=== PATIENT | female | born 1950 | race Caucasian/White ===

== ENCOUNTER 2019-06-03 19:41 | Emergency (ER) | payer BC ==
--- NOTE | 2019-06-03 20:50 | ED Physician Documentation ---
History of Present Illness - Stated complaint Stated Complaint: LEG SWELLING - Chief complaint Chief Complaint: General - History obtained from History obtained from: Patient - History of Present Illness Timing: How many days ago (10) - Additonal information Additional information: Is a 68-year-old woman who presents after being seen in urgent care today and re ceiving a phone call that she had abnormal lab test and the elevated d-dimer and they wanted her to come in for an ultrasound. She tells me she went to urgent care in the first place for "a Croatian" scab things and swelling in her legs that have been progressing over the past 10 days. She thinks she might have some sort of parasite that she contracted after her neighbor cleared [address] right next to their house and there just been a ton a deer around since then. She does have pain in her feet just from all the swelling and the skin stretching. Both legs are swollen symmetrically and she does not feel short of breath. Note denies chest pain. She has not felt dizzy or had nausea or vomiting. She denies any history of heart disease and denies history of DVT. She reports a fever of 101 degrees last week resolved on its own and she says that she is prone to sinus infections she has had minimal nasal congestion but denies sore throat coughing or ear pain. She does take a baby aspirin daily and even though she supposed to be on thyroid replacement she is been off of it for a couple of years. She has noticed that her pants are tighter and she is estimates she is gained 20 to 30 pounds over the past 10 days. 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 She is . Review of Systems Constitutional: denies: Fever Ears: denies: Ear pain Nose: reports: Congestion Throat: denies: Sore throat Cardiac: reports: Pedal edema. denies: Chest pain / pressure, Palpitations Respiratory: denies: Dyspnea, Cough GI: denies: Nausea, Vomiting : denies: Dysuria Skin: reports: Rash (There are several open small pinpoint lesions on her lower extremities.) Musculoskeletal: reports: Extremity swelling Neurologic: denies: Generalized weakness, Numbness, Syncope Endocrine: reports: Other (Patient has a history of hypothyroidism but is not on her Synthroid currently) PD PAST MEDICAL HISTORY - Allergies Allergies/Adverse Reactions: Allergies Allergy/AdvReac Type Severity Reaction Status Date / Time bee venom protein (honey bee) Allergy Anaphylaxis Verified 06/03/19 19:48 Penicillins Allergy Anaphylaxis Verified 06/03/19 19:48 - Social History Does the pt smoke?: No Smoking Status: Never smoker PD ED PE NORMAL - Vitals Vital signs reviewed: Yes - General General: Alert and oriented X 3, No acute distress, Well developed/nourished - HEENT HEENT: Atraumatic, PERRL, Moist mucous membranes, Other (No scleral icterus) - Neck Neck: No adenopathy - Cardiac Cardiac: RRR, No murmur, Strong equal pulses - Respiratory Respiratory: No respiratory distress, Clear bilaterally - Abdomen Abdomen: Normal bowel sounds, Soft, No organomegaly - Derm Derm: Other (Small scattered scabs on her lower extremities bilaterally) - Extremities Extremities: Other (There is 3-4+ pitting edema to her knees bilaterally and pitting edema up the posterior aspect of her thighs to her hips.) - Neuro Neuro: Alert and oriented X 3, No motor deficit, No sensory deficit, Normal speech - Psych Psych: Normal mood, Normal affect Results - Vitals Vitals: Oxygen O2 Source Room air - EKG (time done) 2122 Rate: Rate (enter#) (89) Rhythm: NSR Intervals: Other (Narrow QRS) Ischemia: ST depression (V6), Q waves (V1 and V2), T wave inversion (III), Non specific changes - Labs Labs: Laboratory Tests 06/03/19 06/03/19 06/03/19 21:15 21:15 21:15 WBC 4.4 L RBC 3.92 L Hgb 11.9 L Hct 38.0 MCV 96.9 MCH 30.4 MCHC 31.3 L RDW 14.2 Plt Count 94 L MPV 10.1 Neut # (Auto) 2.5 Lymph # (Auto) 1.1 L [place] # (Auto) 0.5 Eos # (Auto) 0.1 Baso # (Auto) 0.0 Absolute Nucleated RBC 0.00 Nucleated RBC % 0.0 D-Dimer Sodium 140 Potassium 4.0 Chloride 106 Carbon Dioxide 26 Anion Gap 8.0 BUN 11 Creatinine 0.8 Estimated GFR (MDRD) 71 L Glucose 90 Calcium 8.5 Total Bilirubin 2.0 H AST 138 H ALT 96 H Alkaline Phosphatase 125 H Troponin I High Sens B-Natriuretic Peptide 164 H Total Protein 7.4 Albumin 3.3 Globulin 4.1 Albumin/Globulin Ratio 0.8 L Lipase 36 TSH Urine Color Urine Clarity Urine pH Ur Specific [place] Urine Protein Urine Glucose (UA) Urine Ketones Urine Occult Blood Urine Nitrite Urine Bilirubin Urine Urobilinogen Ur Leukocyte Esterase Ur Microscopic Review Urine Culture Comments 06/03/19 06/03/19 06/03/19 21:15 21:15 21:37 WBC RBC Hgb Hct MCV MCH MCHC RDW Plt Count MPV Neut # (Auto) Lymph # (Auto) [place] # (Auto) Eos # (Auto) Baso # (Auto) Absolute Nucleated RBC Nucleated RBC % D-Dimer Sodium Potassium Chloride Carbon Dioxide Anion Gap BUN Creatinine Estimated GFR (MDRD) Glucose Calcium Total Bilirubin AST ALT Alkaline Phosphatase Troponin I High Sens 5.9 B-Natriuretic Peptide Total Protein Albumin Globulin Albumin/Globulin Ratio Lipase TSH 4.06 Urine Color YELLOW Urine Clarity CLEAR Urine pH 6.0 Ur Specific [place] <=1.005 Urine Protein NEGATIVE Urine Glucose (UA) NEGATIVE Urine Ketones NEGATIVE Urine Occult Blood NEGATIVE Urine Nitrite NEGATIVE Urine Bilirubin NEGATIVE Urine Urobilinogen 1 (NORMAL) Ur Leukocyte Esterase NEGATIVE Ur Microscopic Review NOT INDICATED Urine Culture Comments NOT INDICATED 06/03/19 21:52 WBC RBC Hgb Hct MCV MCH MCHC RDW Plt Count MPV Neut # (Auto) Lymph # (Auto) [place] # (Auto) Eos # (Auto) Baso # (Auto) Absolute Nucleated RBC Nucleated RBC % D-Dimer > 1050.0 H Sodium Potassium Chloride Carbon Dioxide Anion Gap BUN Creatinine Estimated GFR (MDRD) Glucose Calcium Total Bilirubin AST ALT Alkaline Phosphatase Troponin I High Sens B-Natriuretic Peptide Total Protein Albumin Globulin Albumin/Globulin Ratio Lipase TSH Urine Color Urine Clarity Urine pH Ur Specific [place] Urine Protein Urine Glucose (UA) Urine Ketones Urine Occult Blood Urine Nitrite Urine Bilirubin Urine Urobilinogen Ur Leukocyte Esterase Ur Microscopic Review Urine Culture Comments - Rads (name of study) cxr Radiology: EMP read contemporaneously, See rad report (No pulm edema or cardiomegaly) PD MEDICAL DECISION MAKING - ED course Complexity details: reviewed results, d/w patient, d/w family ED course: Patient's initial presentation seemed more of a picture of CHF. Her TSH is actually in the normal range. Her BNP is only slightly elevated at 164. D- dimer did come back over 1050 and I have ordered ultrasound of her lower extremities bilaterally. Troponin was normal. Her liver enzymes are elevated and her white blood cell count and platelet counts are slightly low. She was given Lasix 40 mg and has urinated out 900 cc. I discussed with the hospitalist because I felt the patient should be admitted and worked up with echo. He is requested a CT scan of the chest, abdomen and pelvis with IV contrast. This will tell us if there is any pulmonary embolus or pericardial effusion or other concerning obstructive process in the abdomen. 2349: Care turned over to Dr Posada to F/U on CTs and duplex U/S. Departure - Departure Disposition: 01 Home, Self Care Clinical Impression: Peripheral edema, Cirrhosis Condition: Good Instructions: ED Cirrhosis Liver, ED Edema Legs Bilateral Discharge Date/Time: 06/04/19 02:33
[2019-06-03 21:25] LABS: BASOPHILS % (AUTO) 0.9 %; EOSINOPHILS # (AUTO) 0.1 10^3/uL (0.0-0.7); EOSINOPHILS % (AUTO) 2.5 %; HGB - HEMOGLOBIN 11.9 g/dL (12.0-16.0); LYMPHOCYTES # (AUTO) 1.1 10^3/uL (1.5-3.5); LYMPHOCYTES % (AUTO) 26.1 %; MEAN CORPUSCULAR HEMOGLOBIN 30.4 pg (27.0-31.0); MEAN CORPUSCULAR HGB CONC 31.3 g/dL (32.0-36.0); MEAN CORPUSCULAR VOLUME 96.9 fL (81.0-99.0); MEAN PLATELET VOLUME 10.1 fL (7.9-10.8); MONOCYTES # (AUTO) 0.5 10^3/uL (0.0-1.0); MONOCYTES % (AUTO) 11.9 %; NEUTROPHILS # (AUTO) 2.5 10^3/uL (1.5-6.6); NEUTROPHILS % (AUTO) 57.9 %; PLT - PLATELET COUNT 94 10^3/uL (130-450); RED BLOOD COUNT 3.92 10^6/uL (4.20-5.40); RED CELL DISTRIBUTION WIDTH 14.2 % (12.0-15.0); WHITE BLOOD COUNT 4.4 x10^3/uL (4.8-10.8)
[2019-06-03 21:32] LABS: ALBUMIN 3.3 g/dL (3.2-5.5); ALBUMIN/GLOBULIN RATIO 0.8 (1.0-2.2); CALCIUM 8.5 mg/dL (8.5-10.3); CREATININE 0.8 mg/dL (0.4-1.0); TOTAL PROTEIN 7.4 g/dL (6.7-8.2)
[2019-06-03 21:43] LABS: BILIRUBIN,URINE NEGATIVE (NEGATIVE); GLUCOSE, URINE (UA) NEGATIVE (NEGATIVE); KETONES,URINE (UA) NEGATIVE (NEGATIVE); LEUKOCYTE ESTERASE, URINE NEGATIVE (NEGATIVE); NITRITE,URINE NEGATIVE (NEGATIVE); OCCULT BLOOD,URINE NEGATIVE (NEGATIVE); PROTEIN,URINE NEGATIVE (NEGATIVE); UROBILINOGEN,URINE 1 (NORMAL) E.U./dL (NORMAL)
[2019-06-03 21:45] LABS: CLARITY,URINE CLEAR (CLEAR)
[2019-06-03] MEDS ORDERED: FUROSEMIDE 40 MG/4 ML VIAL IVP STA (21:50)
--- NOTE | 2019-06-03 22:02 | XRAY Report ---
Reason: chest pain Procedure Date: 06/03/2019 Accession Number: [id number] / [id number] Procedure: XR - Chest 1 View X-Ray CPT Code: 97849 FULL RESULT: EXAM: CHEST RADIOGRAPHY EXAM DATE: 06/03/2019 09:38 PM. CLINICAL HISTORY: Chest pain. COMPARISON: 01/31/2014 3:20 PM. TECHNIQUE: 1 view. FINDINGS: Lungs/Pleura: No dense consolidation. No large effusion or pneumothorax. No pulmonary edema. Mediastinum: Heart and mediastinal contours are unremarkable. Other: None. IMPRESSION: No acute radiographic pulmonary abnormalities. RADIA
[2019-06-04] MEDS ORDERED: IOVERSOL 320 100 ML VIAL IVP ONE ×2 (00:07→01:14)
[2019-06-04] MEDS ORDERED: diphenhydrAMINE INJ 50 MG/ML VIAL IVP STA (00:33)
[2019-06-04 00:42] VITALS: BP 160/80
--- NOTE | 2019-06-04 00:52 | Ultrasound Report ---
Reason: bilat edema Procedure Date: 06/04/2019 Accession Number: [id number] / [id number] Procedure: US - Duplex Ext Veins Bilateral CPT Code: FULL RESULT: EXAM: BILATERAL LOWER EXTREMITY VENOUS ULTRASOUND EXAM DATE: 06/04/2019 12:15 AM. CLINICAL HISTORY: Bilateral leg edema. Elevated d-dimer. COMPARISON: None. TECHNIQUE: Real-time sonographic vascular imaging was performed by the tailman through the lower extremities utilizing both color-flow and Doppler spectral analysis. Multiple pharmaceutical specialty representative static images were saved for review. FINDINGS: Right: Common Femoral Vein (CFV): Normal. CFV-GSV Junction: Normal. Profunda Femoral Vein (PFV): Normal. Femoral Vein (FV) Prox: Normal. Femoral Vein (FV) Mid: Normal. Femoral Vein (FV) Dist: Normal. Popliteal Vein: Normal. Posterior Tibial Veins: Normal. Peroneal Veins: Normal. Left: Common Femoral Vein (CFV): Normal. CFV-GSV Junction: Normal. Profunda Femoral Vein (PFV): Normal. Femoral Vein (FV) Prox: Normal. Femoral Vein (FV) Mid: Normal. Femoral Vein (FV) Dist: Normal. Popliteal Vein: Normal. Posterior Tibial Veins: Normal. Peroneal Veins: Normal. Other: Edema in legs, difficult to visualize anatomy especially in calves due to the edema. IMPRESSION: No evidence for deep venous thrombosis bilaterally. Limited as above. RADIA
--- NOTE | 2019-06-04 01:25 | CT Report ---
Reason: Elevated d-dimer Procedure Date: 06/04/2019 Accession Number: [id number] / [id number] Procedure: CT - ANGIO CHEST W/WO CPT Code: FULL RESULT: EXAM: CT ANGIOGRAM CHEST EXAM DATE: 06/04/2019 01:12 AM. CLINICAL HISTORY: Elevated d-dimer. COMPARISON: ABDOMEN/PELVIS W/ 06/04/2019 12:51 AM. TECHNIQUE: Routine helical imaging was performed through the chest in the pulmonary arterial phase. IV Contrast: OPTI 320 100ML. Reconstructions: Coronal 3-D MIP reconstructions.Sagittal and coronal. In accordance with CT protocol optimization, one or more of the following dose reduction techniques were utilized for this exam: automated exposure control, adjustment of mA and/or KV based on patient size, or use of iterative reconstructive technique. FINDINGS: Pulmonary Arteries: Diagnostic quality: Adequate through the segmental arteries. No evidence for acute or chronic pulmonary emboli. RV/LV is within normal limits. There is no interventricular septal bowing. There is no reflux of contrast material in the IVC. Lungs/Pleura: There are no infiltrates. There is a small sessile nodule at the right lung base noted on series 3 image 246. This measures 8 mm x 5 mm. There are no pleural effusions. Mediastinum: The heart is slightly prominent and there are atherosclerotic vascular calcifications of the coronary arteries. Thoracic Aorta: Unremarkable. Upper Abdomen: Limited views to the upper abdomen demonstrate nodular surface of the liver compatible with underlying cirrhosis. Is also a very small amount of perihepatic ascites. Cholelithiasis. Other: None. IMPRESSION: 1. No evidence for pulmonary emboli. 2. Very small pleural-based, sessile nodule at the right lung base. 3. Hepatic cirrhosis and small amount of perihepatic ascites. 4. Cholelithiasis. RADIA
--- NOTE | 2019-06-04 01:32 | CT Report ---
Reason: elevated liver enzymes and leg edema Procedure Date: 06/04/2019 Accession Number: [id number] / [id number] Procedure: CT - Abdomen/Pelvis W CPT Code: FULL RESULT: EXAM: CT ABDOMEN AND PELVIS EXAM DATE: 06/04/2019 01:10 AM. CLINICAL HISTORY: Elevated liver enzymes and leg edema. COMPARISONS: None. TECHNIQUE: Routine helical CT imaging was performed through the abdomen and pelvis. IV contrast: OPTI 320 100ML. Enteric contrast: No. Reconstructions: Coronal and sagittal. In accordance with CT protocol optimization, one or more of the following dose reduction techniques were utilized for this exam: automated exposure control, adjustment of mA and/or KV based on patient size, or use of iterative reconstructive technique. FINDINGS: Lung Bases: Please see recent CT scan of the chest. There is a small sessile nodule at the right lung base. Liver: The liver is contracted and the surface nodular compatible with underlying panic cirrhosis. There is a small amount of perihepatic ascites. Gallbladder/Bile Ducts: There is cholelithiasis without evidence for cholecystitis. Spleen: Normal. Pancreas: Normal. Adrenal Glands: Normal. Kidneys: Normal. No masses or hydronephrosis. Peritoneal Cavity/Bowel: Normal. No free fluid, free air or adenopathy. No masses or acute inflammatory process. The cecum is low lying in the pelvis and there is a moderate amount of stool in the cecum and the ascending colon. The appendix is not clearly visualized. The remaining colon is unremarkable. There is a moderate amount of stool within. No definite inflammatory changes. Pelvic Organs: There is pelvic ascites. Uterus is atrophic. There are no adnexal masses. The bladder is unremarkable. Vasculature: Atherosclerotic vascular calcifications of the aortoiliac vessels. Bones: There are degenerative changes of the spine and moderate to early severe central canal stenosis at the L4-L5 level. Other: None. IMPRESSION: 1. Hepatic cirrhosis. 2. Abdominal and pelvic ascites. 3. Cholelithiasis without evidence for cholecystitis. 4. Spinal stenosis at the L4-L5 level. RADIA
--- NOTE | 2019-06-04 08:15 | ED Physician Documentation ---
ED Addendum - Addendum Addendum: 06/04/19 08:07 Received s/o from Dr. Nicolas; plan is to reevaluate patient after tests resulted (specifically, US and CT chest/abd/pelvis). No DVT on BLE US and no PE on CT chest. Notably, there are hepatic findings c/w cirrhosis with small perihepatic and pelvic ascites. Incidental note of cholelithiasis. No evidence of pericardial effusion. I discussed these results with patient. She says she drinks a 2-3 glasses of wine per night. She has not been diagnosed with liver problems in the past. She is comfortable with d/c home and understands that she needs to follow up for further testing. I stressed the importance of stopping any and all alcohol consumption immediately.
== END 2019-06-04 02:33 | disposition home or self-care (01) ==
LOC: ED 19:41
DX: R60.0 Localized edema (principal); K74.60 Unspecified cirrhosis of liver; R18.8 Other ascites; K80.20 Calculus of gallbladder without cholecystitis without obstruction; M48.061 Spinal stenosis, lumbar region without neurogenic claudication; Z79.82 Long term (current) use of aspirin
CPT/HCPCS: 36415; 71045; 71275; 74177; 81003; 83690; 83880; 84484; 85379; 93005; 93970; 96374; 96375; 99283; 99284; J1200; Q9967; 80053; 81001; 84443; 85025; 87086

== ENCOUNTER 2020-10-20 07:00 | Outpatient (CLI) | payer BC ==
[2020-10-20 18:16] LABS: BILIRUBIN,URINE NEGATIVE (NEGATIVE); GLUCOSE, URINE (UA) NEGATIVE (NEGATIVE); KETONES,URINE (UA) NEGATIVE (NEGATIVE); LEUKOCYTE ESTERASE, URINE NEGATIVE (NEGATIVE); NITRITE,URINE NEGATIVE (NEGATIVE); OCCULT BLOOD,URINE NEGATIVE (NEGATIVE); PH,URINE 5.5 PH (5.0-7.5); PROTEIN,URINE NEGATIVE (NEGATIVE); UROBILINOGEN,URINE 1 (NORMAL) E.U./dL (NORMAL)
[2020-10-20 18:23] LABS: CLARITY,URINE HAZY (CLEAR)
[2020-10-20 18:37] LABS: BACTERIA,URINE Few /HPF (None Seen); RBC,URINE None Seen /HPF (0-5); SQUAMOUS EPITHELIAL CELL,UR MANY Squamous (<= Few); WBC,URINE 0-3 /HPF (0-5)
== END 2020-10-20 23:59 | disposition home or self-care (01) ==
LOC: LAB.R 07:00
PROVIDERS: ATTEND Obstetrics & Gynecology
DX: R30.0 Dysuria (principal)
CPT/HCPCS: 81001; 87086

== ENCOUNTER 2020-10-20 07:00 | Outpatient (CLI) | payer BC ==
[2020-10-21 20:10] LABS: BACTERIAL VAGINOSIS DNA NEGATIVE (NEGATIVE); CANDIDA GLABRATA DNA NEGATIVE (NEGATIVE); CANDIDA GROUP DNA NEGATIVE (NEGATIVE); CANDIDA KRUSEI DNA NEGATIVE (NEGATIVE); TRICHOMONAS VAGINALIS DNA NEGATIVE (NEGATIVE)
== END 2020-10-20 23:59 | disposition home or self-care (01) ==
LOC: LAB.R 07:00
PROVIDERS: ATTEND Obstetrics & Gynecology
DX: N89.8 Other specified noninflammatory disorders of vagina (principal)
CPT/HCPCS: 87661; 87801

== ENCOUNTER 2020-10-20 11:27 | Outpatient (CLI) | payer BC ==
[2020-10-20 12:08] LABS: HCT - HEMATOCRIT 31.3 % (37.0-47.0); HGB - HEMOGLOBIN 10.3 g/dL (12.0-16.0); MEAN CORPUSCULAR HEMOGLOBIN 32.9 pg (27.0-31.0); MEAN CORPUSCULAR HGB CONC 32.9 g/dL (32.0-36.0); MEAN PLATELET VOLUME 9.9 fL (7.9-10.8); RED BLOOD COUNT 3.13 10^6/uL (4.20-5.40); RED CELL DISTRIBUTION WIDTH 15.7 % (12.0-15.0); WHITE BLOOD COUNT 4.5 x10^3/uL (4.8-10.8)
[2020-10-20 12:24] LABS: INR 1.5 (0.8-1.2); PT - PROTHROMBIN TIME 16.9 secs (9.9-12.6)
[2020-10-20 12:25] LABS: ALBUMIN 2.8 g/dL (3.2-5.5); ALBUMIN/GLOBULIN RATIO 0.7 (1.0-2.2); BILIRUBIN,TOTAL 2.3 mg/dL (0.2-1.0); CALCIUM 8.3 mg/dL (8.5-10.3); POTASSIUM 4.1 mmol/L (3.5-5.0); TOTAL PROTEIN 7.1 g/dL (6.7-8.2)
[2020-10-20 16:08] LABS: % IRON SATURATION 80 % (20-50); IRON 184 ug/dL (28-170); TOTAL IRON BINDING CAPACITY 231 ug/dL (250-450); TRANSFERRIN 165 mg/dL (192-382)
[2020-10-20 16:17] LABS: THYROID STIMULATING HORMONE 4.68 uIU/mL (0.34-5.60)
[2020-10-20 16:24] LABS: FERRITIN 165.9 ng/mL (11.0-306.8)
== END 2020-10-20 11:28 | disposition home or self-care (01) ==
LOC: LAB 11:27
PROVIDERS: ATTEND Obstetrics & Gynecology
DX: R60.0 Localized edema (principal); R23.3 Spontaneous ecchymoses; D53.9 Nutritional anemia, unspecified; B19.20 Unspecified viral hepatitis C without hepatic coma; R60.1 Generalized edema; N89.8 Other specified noninflammatory disorders of vagina; R30.0 Dysuria
CPT/HCPCS: 36415; 80053; 81001; 81599; 82140; 82607; 82728; 82746; 83540; 83880; 84443; 84466; 85027; 85610; 87661; 87801

== ENCOUNTER 2020-11-07 13:47 | Outpatient (CLI) | payer BC ==
--- NOTE | 2020-11-07 16:46 | Ultrasound Report ---
PROCEDURE: Abdomen Complete INDICATIONS: HEP C, LOWER EXTREMITY EDEMA BILAT, ANASARCA TECHNIQUE: Real-time scanning was performed of the abdominal and retroperitoneal organs, with image documentatio n. COMPARISON: None. FINDINGS: Liver: The liver is coarse and nodular consistent with cirrhosis. The liver measures 12.2 cm in great est dimension there is perihepatic ascites. No hepatic masses are identified. Gallbladder: Cholelithiasis without evidence of cholecystitis. Gallbladder wall is slightly thickened measuring 3.8 mm. Biliary ducts: Intrahepatic bile ducts are non-dilated. Extrahepatic bile duct caliber measures 6 m m. Normal is 6-7 mm or less in diameter, or 10 mm or less post-cholecystectomy. Pancreas: Visualized portions of the pancreas are sonographically normal. Spleen: Spleen is normal in size and homogeneous in echotexture. Kidneys: Kidneys are normal in size and echotexture. Right kidney measures 10.8 cm long; left kidne y measures 10.8 cm long. No hydronephrosis or nephrolithiasis. No solid masses. Aorta: Visualized aorta is normal in caliber at less than 3 cm. Iliacs: Proximal common iliac arteries are normal in caliber at less than 2.5 cm. IVC: Intrahepatic inferior vena cava is patent. IMPRESSION: 1. Cirrhosis with ascites. 2. Cholelithiasis. 3. No hepatic masses identified. Reviewed by: Jhon Rodriguez on 11/07/2020 4:44 PM PDT Approved by: hJon Rodriguez on 11/07/2020 4:44 PM PDT Station ID: [id number]
== END 2020-11-07 13:48 | disposition home or self-care (01) ==
LOC: DI 13:47
PROVIDERS: ATTEND Obstetrics & Gynecology
DX: B19.20 Unspecified viral hepatitis C without hepatic coma (principal); K74.60 Unspecified cirrhosis of liver; R18.8 Other ascites; K80.20 Calculus of gallbladder without cholecystitis without obstruction; D53.9 Nutritional anemia, unspecified; D61.818 Other pancytopenia
CPT/HCPCS: 36415; 85025; 85045

== ENCOUNTER 2020-11-07 15:23 | Outpatient (CLI) | payer BC ==
[2020-11-07 16:00] LABS: ABSOLUTE RETICS # AUTO 0.064 10^6/uL (0.020-0.110); BASOPHILS % (AUTO) 1.1 %; EOSINOPHILS % (AUTO) 3.5 %; HCT - HEMATOCRIT 32.7 % (37.0-47.0); HGB - HEMOGLOBIN 10.7 g/dL (12.0-16.0); LYMPHOCYTES % (AUTO) 38.5 %; MEAN CORPUSCULAR HEMOGLOBIN 33.1 pg (27.0-31.0); MEAN CORPUSCULAR HGB CONC 32.7 g/dL (32.0-36.0); MEAN CORPUSCULAR VOLUME 101.2 fL (81.0-99.0); MEAN PLATELET VOLUME 10.8 fL (7.9-10.8); MONOCYTES % (AUTO) 15.1 %; NEUTROPHILS % (AUTO) 41.6 %; PLT - PLATELET COUNT 94 10^3/uL (130-450); RED BLOOD COUNT 3.23 10^6/uL (4.20-5.40); RED CELL DISTRIBUTION WIDTH 14.8 % (12.0-15.0); RETICULOCYTE COUNT % (AUTO) 1.98 % (0.5-2.3); WHITE BLOOD COUNT 5.5 x10^3/uL (4.8-10.8)
[2020-11-07 16:04] LABS: ABNORMAL LYMPHS % (MANUAL) 0 %; BAND NEUTROPHILS % (MANUAL) 0 %
[2020-11-07 16:19] LABS: BASOPHILS # (MANUAL) 0.1 10^3/uL (0-0.1); BASOPHILS % (MANUAL) 1 %; DIFFERENTIAL COMMENT MANUAL DIFFERENTIAL; EOSINOPHILS # (MANUAL) 0.2 10^3/uL (0-0.7); LYMPHOCYTES # (MANUAL) 2.8 10^3/uL (1.5-3.5); LYMPHOCYTES % (MANUAL) 51 %; MONOCYTES # (MANUAL) 0.2 10^3/uL (0.0-1.0); NEUTROPHILS # (MANUAL) 2.3 10^3/uL (1.5-6.6); PLATELET ESTIMATE, MANUAL DECREASED (<130,000) (NORMAL); PLATELET MORPHOLOGY NORMAL APPEARANCE (NORMAL); RBC MORPHOLOGY (MULTIPLE) NORMAL APPEARANCE (NORMAL); WBC MORPHOLOGY (MULTIPLE) NORMAL APPEARANCE (NORMAL)
== END 2020-11-07 15:24 | disposition home or self-care (01) ==
LOC: LAB 15:23
PROVIDERS: ATTEND Obstetrics & Gynecology
DX: D53.9 Nutritional anemia, unspecified (principal); D61.818 Other pancytopenia; R60.1 Generalized edema
CPT/HCPCS: 36415; 85025; 85045

== ENCOUNTER 2021-05-09 07:18 | Outpatient (CLI) | payer BC | END 2021-05-09 07:19 | disposition critical access hospital (66) | LOC: ED 07:18 | DX: R10.9 Unspecified abdominal pain (principal); R41.82 Altered mental status, unspecified; R11.2 Nausea with vomiting, unspecified; R19.7 Diarrhea, unspecified; R60.0 Localized edema | CPT/HCPCS: A0425; A0427 ==

== ENCOUNTER 2021-05-09 08:15 | Emergency (ER) | payer BC ==
--- NOTE | 2021-05-09 08:21 | ED Physician Documentation ---
PD HPI ALTERED MENTAL STATUS - Stated complaint Stated Complaint: AMS - History obtained from History obtained from: EMS - Additional information Additional information: 70-year-old woman, history of cirrhosis, presumed alcoholic cirrhosis based on prior records from May 2019, presents with altered mental status. All of the history is from EMS initially because the patient is nonverbal. Reportedly has been walking aimlessly with decreased mental status for the last 2 days with increased edema. Unclear when her last alcohol use was. Review of Systems Unable to obtain: Confused PD PAST MEDICAL HISTORY - Allergies Allergies/Adverse Reactions: Allergies Allergy/AdvReac Type Severity Reaction Status Date / Time bee venom protein (honey bee) Allergy Anaphylaxis Verified 05/09/21 08:33 Penicillins Allergy Anaphylaxis Verified 05/09/21 08:33 - Social History Does the pt smoke?: No Smoking Status: Never smoker PD ED PE NORMAL - Vitals Vital signs reviewed: Yes - General General: Other (She makes eye contact but does not follow commands. She has purposeful movement pulling down her mask whenever she gets the chance. She does not seem overly icteric.) - HEENT HEENT: PERRL - Neck Neck: Supple, no meningeal sign, No bony TTP - Cardiac Cardiac: RRR, No murmur - Respiratory Respiratory: No respiratory distress, Clear bilaterally - Abdomen Abdomen: Non tender, Other (Soft but with positive fluid wave and ascites,) - Back Back: No CVA TTP, No spinal TTP - Derm Derm: Normal color, Warm and dry - Extremities Extremities: Other (4+ lower extremity pitting pedal edema) - Neuro Eye Opening: Spontaneous Motor: Localizes to Pain Verbal: Incomprehensible (She will say ow to painful stimulus but otherwise is nonverbal) GCS Score: 11 Results - Vitals Vitals: Vital Signs - 24 hr 05/09/21 05/09/21 05/09/21 08:20 11:00 13:00 Temperature 36.7 C Heart Rate 108 H 101 H 111 H Respiratory 24 16 18 Rate Blood Pressure 143/87 H 149/74 H 139/89 H O2 Saturation 100 99 98 Oxygen O2 Source Room air - Labs Labs: Laboratory Tests 05/09/21 05/09/21 05/09/21 09:12 09:17 09:17 WBC 13.2 H RBC 3.10 L Hgb 9.5 L Hct 30.1 L MCV 97.1 MCH 30.6 MCHC 31.6 L RDW 16.0 H Plt Count 109 L MPV 10.0 Neut # (Auto) 10.8 H Lymph # (Auto) 1.2 L Jefferson # (Auto) 1.1 H Eos # (Auto) 0.0 Baso # (Auto) 0.0 Absolute Nucleated RBC 0.00 Nucleated RBC % 0.0 PT 16.3 H INR 1.5 H Sodium Potassium Chloride Carbon Dioxide Anion Gap BUN Creatinine Estimated GFR (MDRD) Glucose Calcium Total Bilirubin AST ALT Alkaline Phosphatase Ammonia Total Protein Albumin Globulin Albumin/Globulin Ratio Lipase Urine Color Urine Clarity Urine pH Ur Specific [place] Urine Protein Urine Glucose (UA) Urine Ketones Urine Occult Blood Urine Nitrite Urine Bilirubin Urine Urobilinogen Ur Leukocyte Esterase Ur Microscopic Review Urine Culture Comments Ur Random Chloride Urine Creatinine Ur Total Protein Timed Protein/Creatinin Ratio Urine Sodium Urine Potassium Fluid Source Fluid Color Fluid Clarity Fluid WBC Fluid RBC Fluid Neutrophils % Fluid Lymphocytes % Fluid Monocytes % Fluid Macrophages % Fld Mesothelial Cell % Nasal Adenovirus (PCR) NOT DETECTED Nasal B. parapertussis DNA (PCR) NOT DETECTED Nasal Coronavir 229E PCR NOT DETECTED Nasal Coronavir HKU1 PCR NOT DETECTED Nasal Coronavir NL63 PCR NOT DETECTED Nasal Coronavir OC43 PCR NOT DETECTED Nasal Enterovir/Rhinovir PCR NOT DETECTED Nasal Influenza B PCR NOT DETECTED Nasal Influenza A PCR NOT DETECTED Nasal Parainfluen 1 PCR NOT DETECTED Nasal Parainfluen 2 PCR NOT DETECTED Nasal Parainfluen 3 PCR NOT DETECTED Nasal Parainfluen 4 PCR NOT DETECTED Nasal RSV (PCR) NOT DETECTED Nasal B.pertussis DNA PCR NOT DETECTED Nasal C.pneumoniae (PCR) NOT DETECTED Bg Human Metapneumo PCR NOT DETECTED Nasal M.pneumoniae (PCR) NOT DETECTED Nasal SARS-CoV-2 (PCR) NOT DETECTED Ethyl Alcohol 05/09/21 05/09/21 05/09/21 09:17 09:17 09:45 WBC RBC Hgb Hct MCV MCH MCHC RDW Plt Count MPV Neut # (Auto) Lymph # (Auto) Jefferson # (Auto) Eos # (Auto) Baso # (Auto) Absolute Nucleated RBC Nucleated RBC % PT INR Sodium 137 Potassium 5.8 H Chloride 100 L Carbon Dioxide 18 L Anion Gap 19.0 H BUN 93 H* Creatinine 11.4 H* Estimated GFR (MDRD) 3 L Glucose 86 Calcium 9.2 Total Bilirubin 2.1 H AST 37 ALT 18 Alkaline Phosphatase 43 Ammonia 102.0 H* Total Protein 7.3 Albumin 2.7 L Globulin 4.6 H Albumin/Globulin Ratio 0.6 L Lipase 43 Urine Color Urine Clarity Urine pH Ur Specific [place] Urine Protein Urine Glucose (UA) Urine Ketones Urine Occult Blood Urine Nitrite Urine Bilirubin Urine Urobilinogen Ur Leukocyte Esterase Ur Microscopic Review Urine Culture Comments Ur Random Chloride Urine Creatinine Ur Total Protein Timed Protein/Creatinin Ratio Urine Sodium Urine Potassium Fluid Source PERITONEAL Fluid Color YELLOW Fluid Clarity CLEAR Fluid WBC 46 Fluid RBC < 3000 Fluid Neutrophils % 6 Fluid Lymphocytes % 8 Fluid Monocytes % 24 Fluid Macrophages % 62 Fld Mesothelial Cell % Not Reportable Nasal Adenovirus (PCR) Nasal B. parapertussis DNA (PCR) Nasal Coronavir 229E PCR Nasal Coronavir HKU1 PCR Nasal Coronavir NL63 PCR Nasal Coronavir OC43 PCR Nasal Enterovir/Rhinovir PCR Nasal Influenza B PCR Nasal Influenza A PCR Nasal Parainfluen 1 PCR Nasal Parainfluen 2 PCR Nasal Parainfluen 3 PCR Nasal Parainfluen 4 PCR Nasal RSV (PCR) Nasal B.pertussis DNA PCR Nasal C.pneumoniae (PCR) Bg Human Metapneumo PCR Nasal M.pneumoniae (PCR) Nasal SARS-CoV-2 (PCR) Ethyl Alcohol < 5.0 05/09/21 05/09/21 12:19 12:19 WBC RBC Hgb Hct MCV MCH MCHC RDW Plt Count MPV Neut # (Auto) Lymph # (Auto) Jefferson # (Auto) Eos # (Auto) Baso # (Auto) Absolute Nucleated RBC Nucleated RBC % PT INR Sodium Potassium Chloride Carbon Dioxide Anion Gap BUN Creatinine Estimated GFR (MDRD) Glucose Calcium Total Bilirubin AST ALT Alkaline Phosphatase Ammonia Total Protein Albumin Globulin Albumin/Globulin Ratio Lipase Urine Color YELLOW Urine Clarity CLEAR Urine pH 5.5 Ur Specific [place] 1.025 Urine Protein TRACE Urine Glucose (UA) NEGATIVE Urine Ketones NEGATIVE Urine Occult Blood NEGATIVE Urine Nitrite NEGATIVE Urine Bilirubin NEGATIVE Urine Urobilinogen 0.2 (NORMAL) Ur Leukocyte Esterase NEGATIVE Ur Microscopic Review NOT INDICATED Urine Culture Comments NOT INDICATED Ur Random Chloride 15 Urine Creatinine 182.5 Ur Total Protein Timed 54 Protein/Creatinin Ratio 0.3 H Urine Sodium < 12.0 Urine Potassium 63.8 Fluid Source Fluid Color Fluid Clarity Fluid WBC Fluid RBC Fluid Neutrophils % Fluid Lymphocytes % Fluid Monocytes % Fluid Macrophages % Fld Mesothelial Cell % Nasal Adenovirus (PCR) Nasal B. parapertussis DNA (PCR) Nasal Coronavir 229E PCR Nasal Coronavir HKU1 PCR Nasal Coronavir NL63 PCR Nasal Coronavir OC43 PCR Nasal Enterovir/Rhinovir PCR Nasal Influenza B PCR Nasal Influenza A PCR Nasal Parainfluen 1 PCR Nasal Parainfluen 2 PCR Nasal Parainfluen 3 PCR Nasal Parainfluen 4 PCR Nasal RSV (PCR) Nasal B.pertussis DNA PCR Nasal C.pneumoniae (PCR) Bg Human Metapneumo PCR Nasal M.pneumoniae (PCR) Nasal SARS-CoV-2 (PCR) Ethyl Alcohol Procedures - Paracentesis Preparation: Other (Diagnostic paracentesis was done in the right lower quadrant after it was marked with ultrasound. The area was prepped twice with ChloraPrep and then infiltrated with lidocaine with epinephrine and then using a 22-gauge spinal needle 20 mL of ascites fluid was drawn off to rule out SBP.) Fluid: Clear PD MEDICAL DECISION MAKING - ED course Complexity details: d/w family ED course: Tried to get a hold of the , No answer, I left a voicemail on the home phone at 9:44 a.m. The other phone number is disconnected. 70-year-old with cirrhosis presents with encephalopathy. Hard to tell if it is hepatic encephalopathy particularly because she is unable to follow commands but I do not see an obvious tremor. I was at least initially unable to get up a hold of the . Work-up demonstrates a leukocytosis, which is not her baseline. Modestly elevated INR 1.5. Most impressively she has prerenal azotemia which is significant and elevated ammonia level with modestly elevated potassium. No alcohol on board. A diagnostic paracentesis was done to rule out SBP as it is difficult to tell if she is in pain in any particular spot. She is started on IV fluids. She will need to be transferred to a facility with hepatology and nephrology consultation available, [facility] was initially called and they do not have hepatology on-call. The [facility] was called and they are full. She was administered twice maintenance IV fluids and lactulose here. I spoke with the rehabilitation attendant on-call for [facility], Dr. Jj Mckinnon, we spoke at 12:25 PM. He is concerned that the patient may not be stable from a GI standpoint to go to [place] but we will talk to them to her. Spoke with Dr Nicolas Hoang, electronics scale tester GI at [facility] and he agrees with transfer to the hospitalist service at [facility]. We spoke at 1241pm. She was accepted by Dr. Massiel Márquez to [facility] at 1:14 PM and cobras are completed. She is stable for transport. The did call me by phone ([phone] and his phone number is [phone]. He reports light alcohol use, stopping maybe 4-5 days ago. Departure - Departure Disposition: 02 Transfer Acute Care Hosp Clinical Impression: Cirrhosis, Dehydration, Renal failure, Hepatic encephalopathy Condition: Serious
--- NOTE | 2021-05-09 08:59 | CT Report ---
PROCEDURE: CT brain without contrast INDICATIONS: Altered level of consciousness TECHNIQUE: Noncontrast 4.5 mm thick angled axial sections acquired from the foramen magnum to the ve rtex. For radiation dose reduction, the following was used: automated exposure control, adjustment of mA and/or kV according to patient size. COMPARISON: None. FINDINGS: Image quality: Excellent. CSF spaces: Basal cisterns are patent. No extra-axial fluid collections. Ventricles are normal in size and shape. Brain: No midline shift. No intracranial masses or hemorrhage. Srinivasan-white matter interface is norm al. Mild atrophy and multifocal white matter chronic ischemic change noted. Skull and face: Calvarium and visualized facial bones are intact, without suspicious lesions. Sinuses: Visualized sinuses and mastoids are clear. IMPRESSION: Atrophy and chronic ischemic change without acute hemorrhage or mass effect. Reviewed by: Matthew Hackett MD on 05/09/2021 7:58 AM WADE Approved by: Matthew Hackett MD on 05/09/2021 7:58 AM [email or web address] Station ID: [id number]
[2021-05-09 09:26] LABS: BASOPHILS % (AUTO) 0.3 %; EOSINOPHILS % (AUTO) 0.2 %; HCT - HEMATOCRIT 30.1 % (37.0-47.0); HGB - HEMOGLOBIN 9.5 g/dL (12.0-16.0); LYMPHOCYTES # (AUTO) 1.2 10^3/uL (1.5-3.5); LYMPHOCYTES % (AUTO) 9.4 %; MEAN CORPUSCULAR HEMOGLOBIN 30.6 pg (27.0-31.0); MEAN CORPUSCULAR HGB CONC 31.6 g/dL (32.0-36.0); MEAN CORPUSCULAR VOLUME 97.1 fL (81.0-99.0); MONOCYTES # (AUTO) 1.1 10^3/uL (0.0-1.0); MONOCYTES % (AUTO) 7.9 %; NEUTROPHILS # (AUTO) 10.8 10^3/uL (1.5-6.6); NEUTROPHILS % (AUTO) 81.7 %; PLT - PLATELET COUNT 109 10^3/uL (130-450); WHITE BLOOD COUNT 13.2 x10^3/uL (4.8-10.8)
[2021-05-09 09:32] LABS: INR 1.5 (0.8-1.2); PT - PROTHROMBIN TIME 16.3 secs (9.9-12.6)
[2021-05-09 09:39] LABS: ALBUMIN 2.7 g/dL (3.2-5.5); ALBUMIN/GLOBULIN RATIO 0.6 (1.0-2.2); ALKALINE PHOSPHATASE 43 IU/L (42-121); ALT ALANINE AMINOTRANSFERASE 18 IU/L (10-60); AST ASPARTATE AMINOTRANSFERASE 37 IU/L (10-42); BILIRUBIN,TOTAL 2.1 mg/dL (0.2-1.0); CALCIUM 9.2 mg/dL (8.5-10.3); CARBON DIOXIDE - CO2 18 mmol/L (21-32); CHLORIDE 100 mmol/L (101-111); ETOH - ETHANOL < 5.0 mg/dL; GFR - MDRD 3 (>89); GLUCOSE 86 mg/dL (70-100); LIPASE 43 U/L (22-51); POTASSIUM 5.8 mmol/L (3.5-5.0); SODIUM 137 mmol/L (135-145); TOTAL PROTEIN 7.3 g/dL (6.7-8.2)
[2021-05-09] MEDS ORDERED: LIDOCAINE 1%-EPI 1:100000 20 ML MDV SUBQ STA (09:42)
[2021-05-09 09:43] LABS: BUN - BLOOD UREA NITROGEN 93 mg/dL (6-20); CREATININE 11.4 mg/dL (0.4-1.0)
[2021-05-09] MEDS ORDERED: SODIUM CHLORIDE 0.9% 1,000 ML IV STA ×2 (09:43)
[2021-05-09] MEDS ORDERED: LACTULOSE 10 GM /15 ML UDC PO STA (09:55)
[2021-05-09 10:20] LABS: BF CLARITY CLEAR; BF SOURCE PERITONEAL; CC,BF RBC < 3000 /mm^3; CC,BF WBC 46 /mm^3
[2021-05-09 10:21] LABS: BF COLOR YELLOW
[2021-05-09 10:30] LABS: B. PARAPERTUSSIS- RESP PCR PAN NOT DETECTED; B. PERTUSSIS- RESP PCR PANEL NOT DETECTED; C. PNEUMONIAE- RESP PCR PANEL NOT DETECTED; CORONAVIRUS 229E-RESP PCR NOT DETECTED; CORONAVIRUS HKU1-RESP PCR NOT DETECTED; CORONAVIRUS NL63-RESP PCR NOT DETECTED; CORONAVIRUS OC43-RESP PCR NOT DETECTED; HUMAN METAPNEUMOVIRUS NOT DETECTED; INFLUENZA A- RESP PCR PANEL NOT DETECTED; INFLUENZA B - RESP PCR PANEL NOT DETECTED; M. PNEUMONIAE- RESP PCR PANEL NOT DETECTED; PARAINFLUENZA VIRUS 1 NOT DETECTED; PARAINFLUENZA VIRUS 2 NOT DETECTED; PARAINFLUENZA VIRUS 3 NOT DETECTED; PARAINFLUENZA VIRUS 4 NOT DETECTED; RHINOVIRUS/ENTEROVIRUS NOT DETECTED; RSV- RESP PCR PANEL NOT DETECTED; SARS-CoV-2 -RESP PCR PANEL NOT DETECTED
[2021-05-09 11:24] LABS: LYMPHOCYTES %,BODY FLUID 8 %; MACROPHAGES %,BODY FLUID 62 %; MONOCYTES %,BODY FLUID 24 %; NEUTROPHILS %, BF 6 %
[2021-05-09 12:53] LABS: BILIRUBIN,URINE NEGATIVE (NEGATIVE); GLUCOSE, URINE (UA) NEGATIVE (NEGATIVE); KETONES,URINE (UA) NEGATIVE (NEGATIVE); LEUKOCYTE ESTERASE, URINE NEGATIVE (NEGATIVE); NITRITE,URINE NEGATIVE (NEGATIVE); OCCULT BLOOD,URINE NEGATIVE (NEGATIVE); PH,URINE 5.5 PH (5.0-7.5); PROTEIN,URINE TRACE mg/dL (NEGATIVE); UROBILINOGEN,URINE 0.2 (NORMAL) E.U./dL (NORMAL)
[2021-05-09 13:01] LABS: CLARITY,URINE CLEAR (CLEAR)
[2021-05-09 13:17] LABS: CHLORIDE,URINE RANDOM 15 mmol/L; CREATININE,URINE 182.5 mg/dL; POTASSIUM,URINE 63.8 mmol/L; PROTEIN/CREATININE RATIO,URINE 0.3 (<=0.2); SODIUM, URINE < 12.0 mmol/L; TOTAL PROTEIN,URINE TIMED 54 mg/dL
[2021-05-09 15:03] VITALS: BP 146/78
== END 2021-05-09 15:03 | disposition short-term general hospital (02) ==
LOC: EDUNIT# → ED 08:15
DX: K74.60 Unspecified cirrhosis of liver (principal); K72.90 Hepatic failure, unspecified without coma; E86.0 Dehydration; N19 Unspecified kidney failure; Z20.822 Contact with and (suspected) exposure to COVID-19
CPT/HCPCS: 0202U; 36415; 49082; 51702; 70450; 80053; 80320; 81003; 82140; 82436; 82570; 83690; 84133; 84156; 84300; 85025; 85610; 87070; 87205; 89051; 96360; 96361; 99285; A9270; 81001; 87086

== ENCOUNTER 2021-05-09 15:04 | Outpatient (CLI) | payer BC | END 2021-05-09 15:05 | disposition short-term general hospital (02) | LOC: EMS 15:04 | PROVIDERS: ATTEND Emergency Medicine | DX: N19 Unspecified kidney failure (principal); G93.40 Encephalopathy, unspecified | CPT/HCPCS: A0425; A0428 ==